=== PATIENT | female | born 1940 | race Caucasian/White ===

== ENCOUNTER 2019-05-03 08:48 | Emergency (ER) | payer OTHER ==
[~2019-05-03] VITALS: Ht 165.1 cm; Wt 80.7 kg
--- NOTE | ~2019-05-03 | EMS ---
[address] [address] EMS Patient Care Report Name: UDAY CAMP Room #: DEP SAIDA Gallego#: [id number] Admission: 05/03/19 Attend Phys: Discharge: 05/03/19 Date of : 42 Report #: [id number] THIS REPORT FOR: //name// Report Transmitted: 05/06/2019 10:25 EMS Care Summary [place], [place]/[facility] Incident [id number] @ 05/03/2019 08:11 Incident Location [address] Patient UDAY CAMP Female, 78 Years 1940 Patient Address [address] [place] [address] Patient History Congestive Heart Failure (CHF),Hypertension,Gastro-Esophageal Reflux Disease (GERD),Anemia,Hypothyroidism,Type 2 Diabetes, Patient Allergies Lipitor, Patient Medications Carvedilol, Lasix, Levothyroxine, Melatonin, Nystatin, Lisinopril, Chief Complaint FALL Disposition Transported No Lights/[place] Dispatch Reason Falls Transported To [facility] Narrative DISPATCHED EMERGENCY ON [facility] F[facility] NURSE MEETS EMS AT DOORWAY OF PT'S ROOM. 78 Y/O FEMALE SITTING IN CHAIR [facility] [address] [place] [address] EMS Patient Care Report Name: UDAY CAMP Room #: DEP Julián#: [id number] Admission: 05/03/19 Attend Phys: Discharge: 05/03/19 Date of : 42 Report #: [id number] APPEARING IN NO DISTRESS. GCS 15 AND A/OX4. PT HAS CONSENTED FOR TX AND TRANSPORTATION. REQUESTS TRANSPORTATION TO [facility]. V/S'S OBTAINED BY NURSE PRIOR TO EMS ARRIVAL. NURSE STATES THAT PT WAS FOUND ON THE FLOOR IN HER ROOM NEXT TO HER BED. PT STATES THAT SHE REMEMBERS WAKING UP AND ATTEMPTED TO GET OUT OF BED TO GO TO BREAKFAST. PT STATES THIS IS THE LAST THING SHE REMEMBERS. PT IS UNSURE IF SHE JUST FELL OUT OF BED AND DOESN'T REMEMBER IF SHE HAD ANY SYMPTOMS PRIOR TO FALLING. SWELLING/HEMATOMA TO BACK OF PT'S HEAD. PT DENIES ANY NECK, BACK, HEAD PAIN. PT DENIES ANY MEDICAL COMPLAINTS. MOVED WITHOUT INCIDENT TO AMBULANCE VIA STRETCHER. V/S'S OBTAINED. TRANSPORTED TO [facility]. REASSESSED ENROUTE. REMAINS GCS 15 AND ALERT. CONTINUES TO DENY ANY MEDICAL COMPLAINTS. V/S'S REASSESSED. REPORT CALLED TO HOSPITAL. MOVED WITHOUT INCIDENT TO ER HOSPITAL BED 3. PT CARE TRANSFERRED TO ED RN. Initial Vitals @PTAP: 75,R: 14,BP: 105/55,Pain: 0/10,GCS: 15,Temp: 101.3F,Revised Trauma: 12, @08:39P: 73,R: 16,Pain: 0/10,GCS: 15,SpO2: 95,Revised Trauma: 12, @08:25P: 81,R: 16,BP: 104/57,Pain: 0/10,GCS: 15,Glucose: 204,SpO2: 94,Revised Trauma: 12, Assessments @08:19MENTAL:Time Oriented,Person Oriented,Event Oriented,Place Oriented,SKIN:HEENT:Head/Face: Other,Head/Face: Swelling,Eyes: Left Pupil: 4-mm,Eyes: Right Pupil: 4-mm,Head/Face: OTH,LUNG SOUNDS:General: No Abnormalities,ABDOMEN:General: No Abnormalities,PELVIS//GI:No Abnormalities,EXTREMITIES:Capillary Refill: Left Upper: < 2 Sec,Capillary Refill: Right Lower: < 2 Sec,Capillary Refill: Right Upper: < 2 Sec,Capillary Refill: Left Lower: < 2 Sec,Left Arm: No Abnormalities,Right Arm: No Abnormalities,Left Leg: No Abnormalities,Right Leg: No Abnormalities,PULSE:Radial: 2+ Normal,NEURO:No Abnormalities, Impression Injury of Head Procedures @08:19ALS AssessmentResponse: UnchangedSucceeded@[email or web address]:retcherResponse: Unchanged Timeline MEDICAL SCIENCE LIAISON,BP: 105/55 M,PULSE: 75,RR: 14 R,SPO2: Ox,ETCO2: ,BG: ,PAIN: 0,GCS: 15, 08:10,Call Received 08:10,Dispatch Notified 08:11,Dispatched 08:12,En Route 08:16,On Scene 08:18,At Patient [address] [address] EMS Patient Care Report Name: UDAY CAMP Room #: DEP SAIDA Gallego#: [id number] Admission: 05/03/19 Attend Phys: Discharge: 05/03/19 Date of : 42 Report #: [id number] 08:19,ALS Assessment,Response: UnchangedSucceeded, 08:21,Stretcher,Response: Unchanged 08:25,Depart Scene 08:25,BP: 104/57 M,PULSE: 81,RR: 16 R,SPO2: 94 Ox,ETCO2: ,B,PAIN: 0,GCS: 15, 08:39,BP: 100/ M,PULSE: 73,RR: 16 R,SPO2: 95 Ox,ETCO2: ,BG: ,PAIN: 0,GCS: 15, 08:41,At Destination 09:15,Call Closed Disclaimer v1.1 Copyright 2019 [employer] This EMS Care Summary contains data elements from the applicable legal record (which may be displayed differently). It is designed to provide pertinent information for the following purposes: continuity of care, clinical quality, and state data reporting. The complete legal record is available to ED staff and administrators of the receiving hospital in [employer]'s Patient Tracker. All data is provided "as is."
--- NOTE | ~2019-05-03 | EMS ---
[facility] [address] [place] [address] EMS Patient Care Report Name: UDAY CAMP Room #: REG SAIDA Gallego#: [id number] Admission: 05/03/19 Attend Phys: Discharge: Date of : 42 Report #: [id number] THIS REPORT FOR: //name// Report Transmitted: 05/03/2019 10:27 EMS Care Summary [place], [place]/[facility] Incident [id number] @ 05/03/2019 08:11 Incident Location [address] Patient UDAY CAMP Female, 78 Years 1940 Patient Address [address] [place] [address] Patient History Congestive Heart Failure (CHF),Hypertension,Gastro-Esophageal Reflux Disease (GERD),Anemia,Hypothyroidism,Type 2 Diabetes, Patient Allergies Lipitor, Patient Medications Carvedilol, Lasix, Levothyroxine, Melatonin, Nystatin, Lisinopril, Chief Complaint FALL Disposition Transported No Lights/[place] Dispatch Reason Falls Transported To [facility] Narrative DISPATCHED EMERGENCY ON A F[facility]. NURSE MEETS EMS AT DOORWAY OF PT'S ROOM. 78 Y/O FEMALE SITTING IN CHAIR [facility] [address] [place] [address] EMS Patient Care Report Name: UDAY CAMP Room #: REG ER Julián#: [id number] Admission: 05/03/19 Attend Phys: Discharge: Date of : 42 Report #: [id number] APPEARING IN NO DISTRESS. GCS 15 AND A/OX4. PT HAS CONSENTED FOR TX AND TRANSPORTATION. REQUESTS TRANSPORTATION TO [facility]. V/S'S OBTAINED BY NURSE PRIOR TO EMS ARRIVAL. NURSE STATES THAT PT WAS FOUND ON THE FLOOR IN HER ROOM NEXT TO HER BED. PT STATES THAT SHE REMEMBERS WAKING UP AND ATTEMPTED TO GET OUT OF BED TO GO TO BREAKFAST. PT STATES THIS IS THE LAST THING SHE REMEMBERS. PT IS UNSURE IF SHE JUST FELL OUT OF BED AND DOESN'T REMEMBER IF SHE HAD ANY SYMPTOMS PRIOR TO FALLING. SWELLING/HEMATOMA TO BACK OF PT'S HEAD. PT DENIES ANY NECK, BACK, HEAD PAIN. PT DENIES ANY MEDICAL COMPLAINTS. MOVED WITHOUT INCIDENT TO AMBULANCE VIA STRETCHER. V/S'S OBTAINED. TRANSPORTED TO [facility]. REASSESSED ENROUTE. REMAINS GCS 15 AND ALERT. CONTINUES TO DENY ANY MEDICAL COMPLAINTS. V/S'S REASSESSED. REPORT CALLED TO HOSPITAL. MOVED WITHOUT INCIDENT TO ER HOSPITAL BED 3. PT CARE TRANSFERRED TO ED RN. Initial Vitals @PTAP: 75,R: 14,BP: 105/55,Pain: 0/10,GCS: 15,Temp: 101.3F,Revised Trauma: 12, @08:39P: 73,R: 16,Pain: 0/10,GCS: 15,SpO2: 95,Revised Trauma: 12, @08:25P: 81,R: 16,BP: 104/57,Pain: 0/10,GCS: 15,Glucose: 204,SpO2: 94,Revised Trauma: 12, Assessments @08:19MENTAL:Time Oriented,Person Oriented,Event Oriented,Place Oriented,SKIN:HEENT:Head/Face: Other,Head/Face: Swelling,Eyes: Left Pupil: 4-mm,Eyes: Right Pupil: 4-mm,Head/Face: OTH,LUNG SOUNDS:General: No Abnormalities,ABDOMEN:General: No Abnormalities,PELVIS//GI:No Abnormalities,EXTREMITIES:Capillary Refill: Left Upper: < 2 Sec,Capillary Refill: Right Lower: < 2 Sec,Capillary Refill: Right Upper: < 2 Sec,Capillary Refill: Left Lower: < 2 Sec,Left Arm: No Abnormalities,Right Arm: No Abnormalities,Left Leg: No Abnormalities,Right Leg: No Abnormalities,PULSE:Radial: 2+ Normal,NEURO:No Abnormalities, Impression Injury of Head Procedures @08:19ALS AssessmentResponse: UnchangedSucceeded@:retcherResponse: Unchanged Timeline NURSE CONSULTANT,BP: 105/55 M,PULSE: 75,RR: 14 R,SPO2: Ox,ETCO2: ,BG: ,PAIN: 0,GCS: 15, 08:10,Call Received 08:10,Dispatch Notified 08:11,Dispatched 08:12,En Route 08:16,On Scene 08:18,At Patient [address] [address] EMS Patient Care Report Name: UDAY CAMP Room #: REG Julián#: [id number] Admission: 05/03/19 Attend Phys: Discharge: Date of : 42 Report #: [id number] 08:19,ALS Assessment,Response: UnchangedSucceeded, 08:21,Stretcher,Response: Unchanged 08:25,Depart Scene 08:25,BP: 104/57 M,PULSE: 81,RR: 16 R,SPO2: 94 Ox,ETCO2: ,B,PAIN: 0,GCS: 15, 08:39,BP: 100/ M,PULSE: 73,RR: 16 R,SPO2: 95 Ox,ETCO2: ,BG: ,PAIN: 0,GCS: 15, 08:41,At Destination 09:15,Call Closed Disclaimer v1.1 Copyright 2019 [employer] This EMS Care Summary contains data elements from the applicable legal record (which may be displayed differently). It is designed to provide pertinent information for the following purposes: continuity of care, clinical quality, and state data reporting. The complete legal record is available to ED staff and administrators of the receiving hospital in [facility]'s Patient Tracker. All data is provided "as is."
[2019-05-03 09:34] LABS: HEMATOCRIT 23.2 % (37.0-47.0); HEMOGLOBIN 7.8 gm/dL (12.0-15.0); MCH 37.7 pg (26.0-34.0); MCHC 33.6 g/dL (28.0-37.0); MCV 112.2 fL (80.0-100.0); PLATELET COUNT 136 thou/uL (150-400); RBC 2.07 mil/uL (4.20-5.00); RDW 14.8 % (10.5-14.5); WBC 15.7 thou/uL (4.0-11.0)
[2019-05-03 09:44] LABS: ANION GAP 11 mmol/L (7-16); BUN 48 mg/dL (7-18); CALCIUM 8.7 mg/dL (8.5-10.1); CHLORIDE 99 mmol/L (98-107); CO2 23 mmol/L (21-32); CREATININE 1.8 mg/dL (0.6-1.0); GLUCOSE 163 mg/dL (74-106); POTASSIUM 3.9 mmol/L (3.5-5.1); SODIUM 133 mmol/L (136-145)
[2019-05-03 09:52] LABS: TROPONIN-I <0.06 ng/mL (<0.06)
[2019-05-03] MEDS ORDERED: LASIX 20 MG TAB20 MG PO (09:57)
[2019-05-03] MEDS ORDERED: ASPIR 8181 M1 PO (09:57)
[2019-05-03] MEDS ORDERED: CARVEDILOL12.5 MG PO (09:57)
[2019-05-03] MEDS ORDERED: TYLENOL EXTRA500 MG PO (09:58)
[2019-05-03] MEDS ORDERED: LISINOPRIL5 MG PO (09:58)
[2019-05-03] MEDS ORDERED: LEVO-T50 MCG PO (09:58)
[2019-05-03] MEDS ORDERED: MELADOX3 MG PO (09:59)
[2019-05-03] MEDS ORDERED: NYSTATIN15 G2 TOP (09:59)
[2019-05-03 10:03] LABS: URINE BILIRUBIN NEGATIVE (Negative); URINE BLOOD 2+ (Negative); URINE CLARITY CLOUDY; URINE COLOR YELLOW; URINE GLUCOSE-RANDOM* NEGATIVE (Negative); URINE KETONES NEGATIVE (Negative); URINE NITRITE-REFLEX NEGATIVE (Negative); URINE PROTEIN (DIPSTICK) NEGATIVE (Negative)
[2019-05-03 10:04] LABS: URINE LEUKOCYTES-REFLEX 3+ (Negative)
[2019-05-03 10:27] LABS: AMORPHOUS URATES Moderate /LPF (None Seen); BACTERIA-REFLEX >30 Many /HPF (None Seen); CASTS None Seen /LPF (None Seen); SQUAMOUS 0-3 Few /LPF (0-3); URINE RBC 3-10 Few /HPF (0-2)
[2019-05-03 10:35] LABS: ABSOLUTE NEUTROPHILS 15.2 thou/uL (1.4-8.2); ANISOCYTOSIS 1+; NUCLEATED RBCS 1 /100WBC; PLATELET ESTIMATE NORMAL
[2019-05-03 10:36] LABS: MACROCYTES 2+
[2019-05-03] MEDS ORDERED: KEFLEX500 M2 PO (11:26)
[2019-05-03 11:32] VITALS: BP 101/41
--- NOTE | 2019-05-03 17:13 | EKG ---
[place] [address] [facility] [place] [address] ELECTROCARDIOGRAM REPORT Name: UDAY CAMP Room #: DEP Julián#: [id number] Admission: 05/03/19 Attend Phys: Discharge: 05/03/19 Date of : 42 Report #: [id number] THIS REPORT FOR: //name// [facility] ED Test Date: 2019-05-03 Test Time: 08:57:08 Pat Name: UDAY CAMP Department: Room: Gender: F Healthcare Social Worker: ALEXIS : 1940 Requested By: Abdiaziz Mckeon Order Number: [id number] MD: Edd Anne Measurements Intervals [place] Rate: 71 P: 27 [place]: 213 QRS: -33 QRSD: 131 T: 86 QT: 403 QTc: 438 Interpretive Statements Sinus rhythm Borderline prolonged [place] interval Nonspecific intraventricular conduction delay Baseline wander in lead(s) V1 No previous ECG available for comparison Electronically Signed On 05-03-2019 17:13:12 CDT by Edd Anne [email or web address] <ELECTRONICALLY SIGNED> By: Edd Anne MD, [facility] 05/03/19 [id number] Edd Anne MD, FACC /EPI
== END 2019-05-03 11:40 ==
LOC: ER 08:48
PROVIDERS: Emergency Medicine
DX: S00.83XA Contusion of other part of head, initial encounter (principal); Z88.8 Allergy status to other drugs, medicaments and biological substances; Z86.2 Personal history of diseases of the blood and blood-forming organs and certain disorders involving the immune mechanism; W18.39XA Other fall on same level, initial encounter; Y92.89 Other specified places as the place of occurrence of the external cause; Y93.89 Activity, other specified; Y99.8 Other external cause status